=== PATIENT | female | born 1945 | race Caucasian/White ===

== ENCOUNTER 2017-08-04 16:54 | Inpatient (IN) | payer OTHER ==
[~2017-08-04] VITALS: Ht 162.6 cm; Wt 90.7 kg
[2017-08-04 16:54] VITALS: BP_SYST 117
[~2017-08-04 16:54] MED LIST: ACLI400A2 IH; ALBU8.5H8 INH; ALEN70TA3 PO; BIMA2.5D5 OP; BUDE6.9H INH; FURO-150 PO; GABA-533 PO; HYDR-4100 PO; LEVO25TA7 PO; LISI-600 PO; METO25TA3 PO; MORP30TA59 PO; TIMO5DRO4 OP; TIZA4TAB11 PO; WARF2.5T2 PO
[2017-08-04 17:26] LABS: EOSINOPHILS # (AUTO) 0.1 K/uL (0.0-0.4); MEAN CORPUSCULAR HEMOGLOBIN 29 pg (27-31); MEAN CORPUSCULAR HGB CONC 30 % (32-36); NEUTROPHILS # (AUTO) 4.1 K/uL (1.8-7.7)
[2017-08-04] MEDS ORDERED: IPRATROPIUM BROM 0.5 MG/2.5 ML VIAL.NEB (ATROVENT) INH ONE ×2 (17:27→17:30)
[2017-08-04] MEDS ORDERED: ALBUTEROL SULFATE 0.083% 2.5 MG/3 ML VIAL.NEB INH ONE ×2 (17:27→17:30)
[2017-08-04 17:30] LABS: BASOPHILS # (AUTO) 0.1 K/uL (0.0-0.2); BASOPHILS % (AUTO) 1.9 % (0.0-2.0); EOSINOPHILS % (AUTO) 1.8 % (0.0-4.0); HEMATOCRIT 37.4 % (36-48); HEMOGLOBIN 11.4 g/dL (12.0-16.0); LYMPHOCYTES # (AUTO) 1.4 K/uL (1.0-5.5); LYMPHOCYTES % (AUTO) 23.1 % (20.5-51.5); MEAN CORPUSCULAR VOLUME 94 fL (79.0-98.0); MONOCYTES # (AUTO) 0.5 K/uL (0.0-1.0); MONOCYTES % (AUTO) 7.3 % (1.7-9.3); NEUTROPHILS % (AUTO) 65.9 % (40.0-70.0); PLATELET COUNT (AUTO) 310 K/uL (130-430); RED BLOOD CELL COUNT(AUTO) 3.97 MIL/uL (4.2-6.2); RED CELL DISTRIBUTION WIDTH 13.7 % (9.0-15.0); WHITE BLOOD COUNT (AUTO) 6.2 K/uL (4.8-10.8)
[2017-08-04 17:35] LABS: CALCIUM 9.6 mg/dL (8.4-11.0); CHLORIDE 91 mmol/L (98-107); CREATININE 0.69 mg/dL (0.55-1.30); GLUCOSE 99 mg/dL (70-99); POTASSIUM 4.7 mmol/L (3.5-5.1); SODIUM SERUM 137 mmol/L (136-145); UREA NITROGEN, BLOOD 12 mg/dL (8-21)
[2017-08-04 17:39] LABS: INR 1.4 (0.8-1.2); PROTHROMBIN TIME 14.6 SECS (9.5-12.5)
[2017-08-04 17:44] LABS: ALANINE AMINOTRANSFERASE 7 U/L (12-78); ALBUMIN 3.2 g/dL (3.4-4.8); ASPARTATE AMINOTRANSFERASE 20 U/L (10-37); TOTAL BILIRUBIN 0.3 mg/dL (0.0-1.0)
[2017-08-04 17:56] LABS: ANION GAP < 3 (5-15)
[2017-08-04] MEDS ORDERED: MIDO5TAB20 PO (18:50)
[2017-08-04] MEDS ORDERED: FURO-150 PO (18:50)
[2017-08-04] MEDS ORDERED: OMEP20CA10 PO (18:50)
[2017-08-04] MEDS ORDERED: POTA20TA83 PO (18:50)
[2017-08-04] MEDS ORDERED: WELSR150 PO (18:50)
[2017-08-04] MEDS ORDERED: BIMA2.5D5 OP (18:50)
[2017-08-04] MEDS ORDERED: ONDA4TAB5 PO (18:52)
[2017-08-04 19:03] LABS: BILIRUBIN,URINE NEGATIVE (NEGATIVE); BLOOD, URINE 2+ (NEGATIVE); CLARITY/URINE HAZY (CLEAR); COLOR,URINE YELLOW (YELLOW); GLUCOSE,URINE NEGATIVE (NEGATIVE); KETONES,URINE NEGATIVE (NEGATIVE); LEUKOCYTE ESTERASE ,URINE 3+ (NEGATIVE); NITRITE, URINE POSITIVE (NEGATIVE); PROTEIN URINE TRACE (NEGATIVE); UROBILINOGEN,URINE 0.2 (0.2-1.0)
[2017-08-04 19:11] LABS: BACTERIA,URINE MANY /HPF (None Seen); MUCUS,URINE None Seen /LPF (None Seen); WBC,URINE >100 /HPF (0-3)
[2017-08-04] MEDS ORDERED: ONDANSETRON HCL 4 MG/2 ML VIAL IVP PRN (19:30)
[2017-08-04] MEDS ORDERED: ACETAMINOPHEN 325 MG TABLET PO PRN (19:30)
[2017-08-04 20:03] VITALS: BP_SYST 123
[2017-08-04] MEDS ORDERED: WARFARIN SODIUM 2 MG TABLET PO SCH (21:00)
[2017-08-04] MEDS ORDERED: AZITHROMYCIN 250 MG TABLET PO ONE (21:00)
[2017-08-04] MEDS: LATANOPROST 2.5 ML DROPS (XALATAN) OP SCH (21:00)
[2017-08-04 21:07] VITALS: BP_SYST 123
[2017-08-04] MEDS ORDERED: cefTRIAXone 1 GM IVPB PREMIX 50 ML IV ONE (22:39)
[2017-08-04] MEDS: cefTRIAXone 1 GM IVPB PREMIX 50 ML IV SCH (22:46)
[2017-08-04] MEDS: GABAPENTIN 400 MG CAPSULE PO SCH (22:47)
[2017-08-04] MEDS: methylPREDNISolone SOD SUCC 40 MG/ML VIAL IVP SCH (22:47)
[2017-08-04] MEDS: ONDANSETRON 4 MG ODT TAB PO SCH (22:53)
[2017-08-04] MEDS: MIDODRINE HCL 5 MG TABLET (PROAMATINE) PO SCH (22:53)
[2017-08-04] MEDS ORDERED: IPRATROPIUM/ALBUTEROL SULFATE 3 ML AMPUL.NEB INH PRN (23:15)
[2017-08-04] MEDS ORDERED: IPRATROPIUM/ALBUTEROL SULFATE 3 ML AMPUL.NEB ONE (23:28)
[2017-08-05 00:44] VITALS: BP_SYST 132
[2017-08-05 04:38] VITALS: BP_SYST 104
[2017-08-05 06:44] LABS: EOSINOPHILS % (AUTO) 0.1 % (0.0-4.0); HEMOGLOBIN 10.7 g/dL (12.0-16.0); LYMPHOCYTES # (AUTO) 0.7 K/uL (1.0-5.5); LYMPHOCYTES % (AUTO) 11.3 % (20.5-51.5); MEAN CORPUSCULAR HEMOGLOBIN 29 pg (27-31); MEAN CORPUSCULAR HGB CONC 31 % (32-36); MEAN CORPUSCULAR VOLUME 93 fL (79.0-98.0); MONOCYTES % (AUTO) 0.7 % (1.7-9.3); NEUTROPHILS # (AUTO) 5.8 K/uL (1.8-7.7); NEUTROPHILS % (AUTO) 87.9 % (40.0-70.0); PLATELET COUNT (AUTO) 315 K/uL (130-430); RED BLOOD CELL COUNT(AUTO) 3.74 MIL/uL (4.2-6.2); RED CELL DISTRIBUTION WIDTH 13.7 % (9.0-15.0); WHITE BLOOD COUNT (AUTO) 6.5 K/uL (4.8-10.8)
[2017-08-05] MEDS: methylPREDNISolone SOD SUCC 40 MG/ML VIAL IVP SCH ×3 (06:49→21:00)
[2017-08-05 08:21] LABS: INR 1.5 (0.8-1.2)
[2017-08-05 08:30] VITALS: BP_SYST 130
[2017-08-05] MEDS ORDERED: FUROSEMIDE 20 MG TABLET PO SCH (09:00)
[2017-08-05] MEDS: METOPROLOL SUCCINATE 25 MG TAB.SR.24H (TOPROL XL) PO SCH ×2 (09:00→10:29)
[2017-08-05] MEDS ORDERED: ENOXAPARIN SODIUM 40 MG/0.4 ML SYRINGE SUBCUT SCH (09:00)
[2017-08-05] MEDS: ONDANSETRON 4 MG ODT TAB PO SCH ×3 (09:00→20:55)
[2017-08-05] MEDS ORDERED: LEVOTHYROXINE SODIUM 0.025 MG TABLET PO SCH (09:00)
[2017-08-05 09:10] LABS: ANION GAP 3 (5-15); CALCIUM 9.3 mg/dL (8.4-11.0); CHLORIDE 93 mmol/L (98-107); GLUCOSE 130 mg/dL (70-99); POTASSIUM 4.6 mmol/L (3.5-5.1); SODIUM SERUM 139 mmol/L (136-145)
[2017-08-05 09:11] LABS: CREATININE 0.52 mg/dL (0.55-1.30); UREA NITROGEN, BLOOD 12 mg/dL (8-21)
[2017-08-05] MEDS: MIDODRINE HCL 5 MG TABLET (PROAMATINE) PO SCH ×3 (10:28→20:50)
[2017-08-05] MEDS: POTASSIUM CHLORIDE 20 MEQ TAB.PRT.SR PO SCH (10:28)
[2017-08-05] MEDS: buPROPion HCL 150 MG TABLET.SA PO SCH (10:29)
[2017-08-05] MEDS: GABAPENTIN 400 MG CAPSULE PO SCH ×3 (10:29→20:48)
[2017-08-05] MEDS: OMEPRAZOLE 20 MG CAPSULE.DR (PriLOSEC) PO SCH (10:29)
[2017-08-05] MEDS: TIMOLOL MALEATE 0.5% OPHTHALMIC DROPS 5 ML OP SCH (10:30)
[2017-08-05] MEDS: AZITHROMYCIN 250 MG TABLET PO SCH (10:30)
[2017-08-05] MEDS: ALBUTEROL SULFATE 0.083% 2.5 MG/3 ML VIAL.NEB INH SCH ×2 (13:29→19:41)
[2017-08-05] MEDS: IPRATROPIUM BROM 0.5 MG/2.5 ML VIAL.NEB (ATROVENT) INH SCH ×2 (13:29→19:41)
[2017-08-05 14:03] VITALS: BP_SYST 159
[2017-08-05 18:28] VITALS: BP_SYST 155
[2017-08-05 20:00] VITALS: BP_SYST 104
[2017-08-05] MEDS: cefTRIAXone 1 GM IVPB PREMIX 50 ML IV SCH (20:47)
[2017-08-05] MEDS: WARFARIN SODIUM 5 MG TABLET PO SCH (20:50)
[2017-08-05] MEDS: LATANOPROST 2.5 ML DROPS (XALATAN) OP SCH (20:52)
[2017-08-05] MEDS ORDERED: FUROSEMIDE 20 MG/2 ML VIAL IVP SCH (21:00)
[2017-08-06] VITALS (7 sets, daily range): BP systolic 103–145
[2017-08-06] MEDS: ALBUTEROL SULFATE 0.083% 2.5 MG/3 ML VIAL.NEB INH SCH ×4 (00:49→20:18)
[2017-08-06] MEDS: IPRATROPIUM BROM 0.5 MG/2.5 ML VIAL.NEB (ATROVENT) INH SCH ×4 (00:49→20:17)
[2017-08-06] MEDS: methylPREDNISolone SOD SUCC 40 MG/ML VIAL IVP SCH ×3 (05:59→22:12)
[2017-08-06] MEDS: LEVOTHYROXINE SODIUM 0.025 MG TABLET PO SCH (05:59)
[2017-08-06 06:49] LABS: INR 1.5 (0.8-1.2)
[2017-08-06 06:50] LABS: ANION GAP 2 (5-15); CALCIUM 9.3 mg/dL (8.4-11.0); CHLORIDE 95 mmol/L (98-107); CREATININE 0.65 mg/dL (0.55-1.30); GLUCOSE 123 mg/dL (70-99); POTASSIUM 3.6 mmol/L (3.5-5.1); SODIUM SERUM 139 mmol/L (136-145); UREA NITROGEN, BLOOD 18 mg/dL (8-21)
[2017-08-06 06:58] LABS: ALANINE AMINOTRANSFERASE 18 U/L (12-78); ALBUMIN 3.1 g/dL (3.4-4.8); ASPARTATE AMINOTRANSFERASE 19 U/L (10-37); TOTAL BILIRUBIN 0.2 mg/dL (0.0-1.0)
[2017-08-06 07:17] LABS: EOSINOPHILS % (AUTO) 0.1 % (0.0-4.0); HEMATOCRIT 36.5 % (36-48); LYMPHOCYTES # (AUTO) 0.9 K/uL (1.0-5.5); MEAN CORPUSCULAR HEMOGLOBIN 28 pg (27-31); MEAN CORPUSCULAR HGB CONC 31 % (32-36); MEAN CORPUSCULAR VOLUME 93 fL (79.0-98.0); MONOCYTES # (AUTO) 0.1 K/uL (0.0-1.0); MONOCYTES % (AUTO) 1.1 % (1.7-9.3); NEUTROPHILS # (AUTO) 4.5 K/uL (1.8-7.7); NEUTROPHILS % (AUTO) 81.8 % (40.0-70.0); PLATELET COUNT (AUTO) 327 K/uL (130-430); RED BLOOD CELL COUNT(AUTO) 3.93 MIL/uL (4.2-6.2); RED CELL DISTRIBUTION WIDTH 14.4 % (9.0-15.0); WHITE BLOOD COUNT (AUTO) 5.5 K/uL (4.8-10.8)
[2017-08-06 08:24] LABS: HEMOGLOBIN 11.1 g/dL (12.0-16.0)
[2017-08-06] MEDS: METOPROLOL SUCCINATE 25 MG TAB.SR.24H (TOPROL XL) PO SCH (08:42)
[2017-08-06] MEDS: POTASSIUM CHLORIDE 20 MEQ TAB.PRT.SR PO SCH (08:43)
[2017-08-06] MEDS: buPROPion HCL 150 MG TABLET.SA PO SCH (08:43)
[2017-08-06] MEDS: GABAPENTIN 400 MG CAPSULE PO SCH ×3 (08:43→20:56)
[2017-08-06] MEDS: OMEPRAZOLE 20 MG CAPSULE.DR (PriLOSEC) PO SCH (08:43)
[2017-08-06] MEDS: ONDANSETRON 4 MG ODT TAB PO SCH ×2 (08:43→20:56)
[2017-08-06] MEDS: MIDODRINE HCL 5 MG TABLET (PROAMATINE) PO SCH ×3 (08:43→20:57)
[2017-08-06] MEDS: FUROSEMIDE 20 MG/2 ML VIAL IVP SCH (08:44)
[2017-08-06] MEDS: AZITHROMYCIN 250 MG TABLET PO SCH (08:44)
[2017-08-06] MEDS: TIMOLOL MALEATE 0.5% OPHTHALMIC DROPS 5 ML OP SCH (08:45)
[2017-08-06] MEDS: cefTRIAXone 1 GM IVPB PREMIX 50 ML IV SCH (20:52)
[2017-08-06] MEDS: WARFARIN SODIUM 5 MG TABLET PO SCH (20:56)
[2017-08-06] MEDS: LATANOPROST 2.5 ML DROPS (XALATAN) OP SCH (20:57)
[2017-08-07] MEDS: IPRATROPIUM BROM 0.5 MG/2.5 ML VIAL.NEB (ATROVENT) INH SCH ×4 (01:00→19:51)
[2017-08-07] MEDS: ALBUTEROL SULFATE 0.083% 2.5 MG/3 ML VIAL.NEB INH SCH ×4 (01:00→19:51)
[2017-08-07 03:46] VITALS: BP_SYST 102
[2017-08-07] MEDS: methylPREDNISolone SOD SUCC 40 MG/ML VIAL IVP SCH (06:11)
[2017-08-07] MEDS: LEVOTHYROXINE SODIUM 0.025 MG TABLET PO SCH (06:12)
[2017-08-07 08:11] VITALS: BP_SYST 115
[2017-08-07] MEDS: buPROPion HCL 150 MG TABLET.SA PO SCH (08:31)
[2017-08-07] MEDS: POTASSIUM CHLORIDE 20 MEQ TAB.PRT.SR PO SCH (08:31)
[2017-08-07] MEDS: OMEPRAZOLE 20 MG CAPSULE.DR (PriLOSEC) PO SCH (08:31)
[2017-08-07] MEDS: MIDODRINE HCL 5 MG TABLET (PROAMATINE) PO SCH ×3 (08:31→21:21)
[2017-08-07] MEDS: METOPROLOL SUCCINATE 25 MG TAB.SR.24H (TOPROL XL) PO SCH (08:31)
[2017-08-07] MEDS: GABAPENTIN 400 MG CAPSULE PO SCH ×3 (08:31→21:22)
[2017-08-07] MEDS: ONDANSETRON 4 MG ODT TAB PO SCH ×2 (08:32→22:15)
[2017-08-07] MEDS: AZITHROMYCIN 250 MG TABLET PO SCH (08:32)
[2017-08-07] MEDS: FUROSEMIDE 20 MG/2 ML VIAL IVP SCH (08:32)
[2017-08-07] MEDS: TIMOLOL MALEATE 0.5% OPHTHALMIC DROPS 5 ML OP SCH (08:32)
[2017-08-07 09:51] VITALS: BP_SYST 115
[2017-08-07] MEDS ORDERED: ALPR0.2583 PO ×2 (11:37→16:28)
[2017-08-07] MEDS ORDERED: TIZA4TAB11 PO (11:37)
[2017-08-07] MEDS: ALPRAZolam 0.25 MG TABLET PO SCH ×3 (15:00→21:26)
[2017-08-07] MEDS ORDERED: TIZA2TAB4 PO (16:30)
[2017-08-07 17:15] VITALS: BP_SYST 114
[2017-08-07 20:00] VITALS: BP_SYST 126
[2017-08-07] MEDS ORDERED: tiZANidine HCL 4 MG TABLET PO SCH (21:00)
[2017-08-07] MEDS: tiZANidine HCL 4 MG TABLET PO SCH (21:22)
[2017-08-07] MEDS: PREDNISONE 20 MG TABLET PO SCH (21:25)
[2017-08-07] MEDS: cefTRIAXone 1 GM IVPB PREMIX 50 ML IV SCH (21:28)
[2017-08-07] MEDS: WARFARIN SODIUM 5 MG TABLET PO SCH (21:28)
[2017-08-07] MEDS: LATANOPROST 2.5 ML DROPS (XALATAN) OP SCH (22:11)
[2017-08-08] VITALS (7 sets, daily range): BP systolic 92–136
[2017-08-08] MEDS: ALBUTEROL SULFATE 0.083% 2.5 MG/3 ML VIAL.NEB INH SCH ×4 (01:08→19:59)
[2017-08-08] MEDS: IPRATROPIUM BROM 0.5 MG/2.5 ML VIAL.NEB (ATROVENT) INH SCH ×4 (01:09→19:59)
[2017-08-08] MEDS: LEVOTHYROXINE SODIUM 0.025 MG TABLET PO SCH (06:27)
[2017-08-08 07:13] LABS: INR 2.4 (0.8-1.2); PROTHROMBIN TIME 24.2 SECS (9.5-12.5)
[2017-08-08 07:18] LABS: ANION GAP 2 (5-15); CALCIUM 9.6 mg/dL (8.4-11.0); CHLORIDE 93 mmol/L (98-107); CREATININE 0.79 mg/dL (0.55-1.30); GLUCOSE 98 mg/dL (70-99); POTASSIUM 3.8 mmol/L (3.5-5.1); SODIUM SERUM 137 mmol/L (136-145); UREA NITROGEN, BLOOD 32 mg/dL (8-21)
[2017-08-08] MEDS: MIDODRINE HCL 5 MG TABLET (PROAMATINE) PO SCH ×3 (08:18→20:34)
[2017-08-08] MEDS: OMEPRAZOLE 20 MG CAPSULE.DR (PriLOSEC) PO SCH (08:18)
[2017-08-08] MEDS: AZITHROMYCIN 250 MG TABLET PO SCH (08:18)
[2017-08-08] MEDS: buPROPion HCL 150 MG TABLET.SA PO SCH (08:18)
[2017-08-08] MEDS: POTASSIUM CHLORIDE 20 MEQ TAB.PRT.SR PO SCH (08:18)
[2017-08-08] MEDS: GABAPENTIN 400 MG CAPSULE PO SCH ×3 (08:18→20:34)
[2017-08-08] MEDS: tiZANidine HCL 4 MG TABLET PO SCH ×3 (08:19→20:34)
[2017-08-08] MEDS: PREDNISONE 20 MG TABLET PO SCH ×2 (08:19→20:34)
[2017-08-08] MEDS: METOPROLOL SUCCINATE 25 MG TAB.SR.24H (TOPROL XL) PO SCH (08:19)
[2017-08-08] MEDS: FUROSEMIDE 20 MG/2 ML VIAL IVP SCH (08:20)
[2017-08-08] MEDS: TIMOLOL MALEATE 0.5% OPHTHALMIC DROPS 5 ML OP SCH (08:20)
[2017-08-08] MEDS: ALPRAZolam 0.25 MG TABLET PO SCH ×4 (08:21→21:00)
[2017-08-08] MEDS: ONDANSETRON 4 MG ODT TAB PO SCH ×2 (08:25→20:33)
[2017-08-08] MEDS ORDERED: WARFARIN SODIUM 2.5 MG TABLET PO SCH (18:00)
[2017-08-08] MEDS: LATANOPROST 2.5 ML DROPS (XALATAN) OP SCH (20:33)
[2017-08-08] MEDS: cefTRIAXone 1 GM IVPB PREMIX 50 ML IV SCH (20:33)
[2017-08-09] VITALS (7 sets, daily range): BP systolic 98–114
[2017-08-09] MEDS: IPRATROPIUM BROM 0.5 MG/2.5 ML VIAL.NEB (ATROVENT) INH SCH ×3 (01:38→14:05)
[2017-08-09] MEDS: ALBUTEROL SULFATE 0.083% 2.5 MG/3 ML VIAL.NEB INH SCH ×3 (01:38→14:05)
[2017-08-09] MEDS: LEVOTHYROXINE SODIUM 0.025 MG TABLET PO SCH (06:01)
[2017-08-09] MEDS: ALPRAZolam 0.25 MG TABLET PO SCH ×2 (09:00→15:00)
[2017-08-09] MEDS: buPROPion HCL 150 MG TABLET.SA PO SCH (09:54)
[2017-08-09] MEDS: FUROSEMIDE 20 MG/2 ML VIAL IVP SCH (09:54)
[2017-08-09] MEDS: ONDANSETRON 4 MG ODT TAB PO SCH (09:55)
[2017-08-09] MEDS: GABAPENTIN 400 MG CAPSULE PO SCH ×2 (09:55→15:16)
[2017-08-09] MEDS: tiZANidine HCL 4 MG TABLET PO SCH ×2 (09:56→15:17)
[2017-08-09] MEDS: PREDNISONE 20 MG TABLET PO SCH (09:58)
[2017-08-09] MEDS: AZITHROMYCIN 250 MG TABLET PO SCH (09:58)
[2017-08-09] MEDS: POTASSIUM CHLORIDE 20 MEQ TAB.PRT.SR PO SCH (09:58)
[2017-08-09] MEDS: OMEPRAZOLE 20 MG CAPSULE.DR (PriLOSEC) PO SCH (09:58)
[2017-08-09] MEDS: MIDODRINE HCL 5 MG TABLET (PROAMATINE) PO SCH ×2 (09:58→15:16)
[2017-08-09] MEDS: TIMOLOL MALEATE 0.5% OPHTHALMIC DROPS 5 ML OP SCH (09:59)
[2017-08-09] MEDS: METOPROLOL SUCCINATE 25 MG TAB.SR.24H (TOPROL XL) PO SCH (09:59)
[2017-08-09 12:42] LABS: INR 2.9 (0.8-1.2)
[2017-08-09] MEDS ORDERED: WARFARIN SODIUM 1 MG TABLET PO SCH (18:00)
[2017-08-12] MEDS ORDERED: ALENDRONATE SODIUM 70 MG TABLET (FOSAMAX) PO SCH (06:00)
== END 2017-08-09 17:20 | disposition home health service (06) | DRG 291 ==
LOC: SED 16:54 → STU 19:23 → SMU 08-07 11:43
PROVIDERS: ADMIT Internal Medicine; ATTEND Internal Medicine
PROC: 5A09357 Assistance with Respiratory Ventilation, Less than 24 Consecutive Hours, Continuous Positive Airway Pressure (ICD-10-PCS; principal; 2017-08-08)
DX: I11.0 Hypertensive heart disease with heart failure (principal); J18.9 Pneumonia, unspecified organism; J96.21 Acute and chronic respiratory failure with hypoxia; I27.20 Pulmonary hypertension, unspecified; D68.62 Lupus anticoagulant syndrome; Z99.81 Dependence on supplemental oxygen; J44.0 Chronic obstructive pulmonary disease with (acute) lower respiratory infection; N39.0 Urinary tract infection, site not specified; J96.22 Acute and chronic respiratory failure with hypercapnia; J44.1 Chronic obstructive pulmonary disease with (acute) exacerbation; M41.9 Scoliosis, unspecified; M54.9 Dorsalgia, unspecified; G89.29 Other chronic pain; R91.8 Other nonspecific abnormal finding of lung field; B96.1 Klebsiella pneumoniae [K. pneumoniae] as the cause of diseases classified elsewhere; I50.31 Acute diastolic (congestive) heart failure; I25.10 Atherosclerotic heart disease of native coronary artery without angina pectoris; Z87.81 Personal history of (healed) traumatic fracture; Z87.891 Personal history of nicotine dependence; Z91.048 Other nonmedicinal substance allergy status; Z74.01 Bed confinement status; Z79.899 Other long term (current) drug therapy; Z86.718 Personal history of other venous thrombosis and embolism; Z79.01 Long term (current) use of anticoagulants; Z86.711 Personal history of pulmonary embolism
CPT/HCPCS: 36415; 36600; 70450-TC; 71010; 71250-TC; 80048; 80053; 81000-TC; 82550-TC; 82803-TC; 83880; 84484; 85025; 85610-TC; 85730-TC; 87086; 87186-TC; 87230-TC; 93005; 93306; 94640; 94660; 94760; 99285; J0696; J1030; J1120; J1650; J1940; J2405; J7050; J7512; Q0144; Q0162